=== PATIENT | male | born 1990 | race American Indian/Alaskan Native ===

== ENCOUNTER 2019-01-19 13:15 | Emergency (ER) | payer OTHER ==
--- NOTE | 2019-01-19 15:43 | Emergency Department Report ---
HPI - General Chief Complaint: Skin/Abscess/Foreign Body Time Seen by Provider: 01/19/19 15:16 - HPI HPI: This is a 28-year-old male who presents to ED complaining of a spider bite that happened to upper arm earlier today. Patient states the area was swollen and has gone down a bit but he still wanted to come to be evaluated. Patient is also stating that he is coughing up brownish sputum for the past 2-3 weeks. He denies any fever, chills, nausea vomiting. She states is his cigarette smoker and has been for a long time since he recently moved here couple months ago and thinks it may be the [facility] Past Medical Hx - Past Medical History Previous Medical History?: No - Surgical History Past Surgical History?: No - Social History Smoking Status: Never Smoker Substance Use Type: Alcohol - Medications Home Medications: Home Medications Medication Instructions Recorded Confirmed Last Taken Type cephALEXin [Keflex] 500 mg PO Q12HR #10 cap 01/19/19 Unknown Rx ED Review of Systems ROS: Stated complaint: RT ARM SPIDER BITE/PAIN Other details as noted in HPI Comment: All other systems reviewed and negative Physical Exam - Physical Exam Vital Signs: Vital Signs 01/19/19 14:24 Temperature 98.9 F Pulse Rate 71 Respiratory 16 Rate Blood Pressure 137/85 O2 Sat by Pulse 99 Oximetry Physical Exam: GENERAL: Alert and oriented x3, no apparent distress, Normal Gait, atraumatic. HEAD: Head is normocephalic and a-traumatic. EYES: Extra ocular muscles are intact. Pupils are equal, round, and reactive to light and accommodation. NECK: Supple. Non edematous, No carotid bruits. No lymphadenopathy or thyromegaly. No C-spine tenderness LUNGS: Symetrical with respiration, No wheezing, no rales or crackles, CTAB. HEART: S1, S2 present, regular rate and rhythm without murmur, no rubs, no gallops. Non tender to palpation SKIN: Warm and dry, No lesions, No ulceration or induration present. Small insect bite to right lateral elbow ED Course Vital Signs 01/19/19 14:24 Temperature 98.9 F Pulse Rate 71 Respiratory 16 Rate Blood Pressure 137/85 O2 Sat by Pulse 99 Oximetry ED Medical Decision Making - Medical Decision Making 28-year-old male presents with an insect bite/spider bite Discuss antibiotics with prophylaxis for infection. Discussed follow-up with primary care physician in 3-5 days.. Critical care attestation.: If time is entered above; I have spent that time in minutes in the direct care of this critically ill patient, excluding procedure time. ED Disposition Clinical Impression: Spider bite Disposition: DC-01 TO HOME OR SELFCARE Is pt being admited?: No Does the pt Need Aspirin: No Condition: Stable Instructions: Insect Bite or Sting (ED) Additional Instructions: Make sure to follow up with the primary care physician as discussed. Take all your medications as you've been prescribed. If you have any worsening symptoms or develop new symptoms please return to ED immediately. Prescriptions: cephALEXin [Keflex] 500 mg PO Q12HR #10 cap Referrals: [facility] [Outside] - 3-5 Days [facility] [Outside] - 3-5 Days Forms: Work/School Release Form(ED) Time of Disposition: 16:08
[2019-01-19 16:45] VITALS: BP 140/80
== END 2019-01-19 16:36 | disposition home or self-care (01) ==
LOC: ED 13:15
DX: R42 Dizziness and giddiness (principal); R11.0 Nausea; I10 Essential (primary) hypertension; Z79.899 Other long term (current) drug therapy; Z90.89 Acquired absence of other organs; Z90.79 Acquired absence of other genital organ(s)
CPT/HCPCS: 99282

== ENCOUNTER 2019-05-23 21:15 | Emergency (ER) | payer SELFPAY ==
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
--- NOTE | 2019-05-23 22:30 | XRay Report ---
LEFT ELBOW 3 VIEWS INDICATION / CLINICAL INFORMATION: Basketball injury with left elbow pain and swelling. COMPARISON: None available. FINDINGS: BONES / JOINT(S): The joint spaces are well-maintained. There is no evidence of fracture, subluxation or joint effusion. SOFT TISSUES: No significant abnormality. ADDITIONAL FINDINGS: None. IMPRESSION: No acute abnormality. Signer Name: Matthieu Castro MD Signed: 05/23/2019 10:26 PM Workstation Name: [id number]
--- NOTE | 2019-05-23 22:32 | XRay Report ---
LEFT HAND 4 VIEWS INDICATION / CLINICAL INFORMATION: Basketball injury with left hand pain and decreased range of motion. COMPARISON: None available. FINDINGS: BONES / JOINT(S): The joint spaces are well-maintained. There is no evidence of fracture or dislocati on. SOFT TISSUES: No significant abnormality. ADDITIONAL FINDINGS: None. IMPRESSION: No acute abnormality. Signer Name: Matthieu Castro MD Signed: 05/23/2019 10:27 PM Workstation Name: [id number]
--- NOTE | 2019-05-23 22:59 | Emergency Department Report ---
Upper Extremity - [facility] Chief Complaint: Extremity Injury, Upper Stated Complaint: FINGER NUMBNESS Time Seen by Provider: 05/23/19 21:37 Upper Extremity: Left Hand, Left Ring Finger, Left Little Finger Occurred When: 1 Day Mechanism: Fall Severity: severe Symptoms: Yes Pain with Movement, Yes Limited Range of Movement, Yes Numbness, Yes Swelling (left ebow), Yes Bruising/Ecchymosis (left elbow), Yes Laceration or Abrasion, No Deformity, No Weakness Other History: 28-year-old -Russian male presents to the emergency room complaining of left elbow pain and numbness to his last 3 fingers on the left hand. Patient reports that they feel numb any in the last 2 would not stay straightened out. Patient has taken nothing for pain but complains pain is 8 out of 10. Patient reports this happened yesterday night as he was playing basketball and fell and hit to the ground where his elbow hit the concrete. Patient denies any past medical history takes no medications on a daily basis has no known drug allergies. He admits to smoking and smoking we denies any other illicit drugs. He did not place any ice on his injury. ED Review of Systems ROS: Stated complaint: FINGER NUMBNESS Other details as noted in HPI ED Past Medical Hx - Past Medical History Previous Medical History?: No - Surgical History Past Surgical History?: No - Social History Smoking Status: Current Every Day Smoker Substance Use Type: Marijuana - Medications Home Medications: Home Medications Medication Instructions Recorded Confirmed Last Taken Type cephALEXin [Keflex] 500 mg PO Q12HR #10 cap 01/19/19 Unknown Rx Ibuprofen [Motrin 600 MG tab] 600 mg PO Q8H PRN #30 tablet 05/24/19 Unknown Rx Upper Extremity Exam - Exam General: Vital signs noted. No distress. Alert and acting appropriately. ED Course Vital Signs 05/23/19 05/23/19 21:20 21:36 Temperature 98.5 F 98.5 F Pulse Rate 70 71 Respiratory 18 18 Rate Blood Pressure 118/80 118/80 O2 Sat by Pulse 100 100 Oximetry ED Medical Decision Making - Radiology Data Radiology results: report reviewed Patient: CLAIRE CAPELLAN MR#: [id number] : 1990 Acct:[id number] Age/Sex: 28 / M ADM Date: 05/23/19 Loc: ED Attending Dr: Ordering Physician: BERT RICHARDS Date of Service: 05/23/19 Procedure(s): XR elbow 3+V LT Accession Number(s): [id number] cc: BERT RICHARDS Fluoro Time In Minutes: LEFT ELBOW 3 VIEWS INDICATION / CLINICAL INFORMATION: Basketball injury with left elbow pain and swelling. COMPARISON: None available. FINDINGS: BONES / JOINT(S): The joint spaces are well-maintained. There is no evidence of fracture, subluxation or joint effusion. SOFT TISSUES: No significant abnormality. ADDITIONAL FINDINGS: None. IMPRESSION: No acute abnormality. Signer Name: Matthieu Castro MD Signed: 05/23/2019 10:26 PM Workstation Name: [id number] Transcribed By: RT Dictated By: Matthieu Castro MD Electronically Authenticated By: Matthieu Castro MD Signed Date/Time: 05/23/192225 DD/ 24 TD/TT: - Medical Decision Making 28-year-old -Russian male presents to the emergency room complaining of left elbow pain and numbness to his last 3 fingers on the left hand. Patient reports that they feel numb any in the last 2 would not stay straightened out. Patient has taken nothing for pain but complains pain is 8 out of 10. Patient reports this happened yesterday night as he was playing basketball and fell and hit to the ground where his elbow hit the concrete. Patient denies any past medical history takes no medications on a daily basis has no known drug allergies. He admits to smoking and smoking we denies any other illicit drugs. He did not place any ice on his injury. X-ray of elbow and hand shows no acute abnormalities. Discussed case with Dr. Solis he feels that this is a ulnar nerve damage. We will place patient in a posterior splint with a volar to the hand. Ibuprofen for pain management and referral to Dr. Claire and/or resurgence. Critical care attestation.: If time is entered above; I have spent that time in minutes in the direct care of this critically ill patient, excluding procedure time. ED Disposition Clinical Impression: Elbow pain, left, Pain in left ulna, Elbow abrasion, non-infected Left elbow contusion Qualifiers: Encounter type: initial encounter Qualified Code(s): S50.02XA - Contusion of left elbow, initial encounter Fall Qualifiers: Encounter type: initial encounter Qualified Code(s): W19.XXXA - Unspecified fall, initial encounter Disposition: DC- TO HOME OR SELFCARE Is pt being admited?: No Does the pt Need Aspirin: No Condition: Stable Instructions: Elbow Sprain (ED) Prescriptions: Ibuprofen [Motrin 600 MG tab] 600 mg PO Q8H PRN #30 tablet PRN Reason: Pain Referrals: MATTHIEU CLAIRE MD [Staff Physician] - 3-5 Days [facility] [Provider Group] - 3-5 Days Forms: Work/School Release Form(ED)
[2019-05-23] MEDS ORDERED: IBUPROFEN 600 MG TAB PO ONE (23:00)
[2019-05-24 00:37] VITALS: BP 110/76
== END 2019-05-24 00:20 | disposition home or self-care (01) ==
LOC: ED 21:15
DX: S50.02XA Contusion of left elbow, initial encounter (principal); F17.200 Nicotine dependence, unspecified, uncomplicated; F12.10 Cannabis abuse, uncomplicated; W19.XXXA Unspecified fall, initial encounter; Y93.89 Activity, other specified; Y92.89 Other specified places as the place of occurrence of the external cause; Y99.8 Other external cause status

== ENCOUNTER 2019-12-21 16:20 | Emergency (ER) | payer SELFPAY ==
[2019-12-21] MEDS ORDERED: NALOXONE 2 MG/2 ML INJ ONE (16:25)
[2019-12-21] MEDS ORDERED: DEXTROSE 50% IN WATER (25GM) 50 ML SYRINGE IV ONE (16:27)
[2019-12-21] MEDS ORDERED: NALOXONE 0.4 MG/1 ML INJ IV ONE (16:44)
[2019-12-21 17:00] LABS: Hemoglobin 14.1 gm/dl (11.8-15.2); Mean Corpuscular HGB Conc 34 % (32-34); Mean Corpuscular Volume 95 fl (84-94); Platelet Count 215 K/mm3 (140-440); Red Blood Count 4.41 M/mm3 (3.65-5.03)
[2019-12-21 17:20] LABS: BUN/Creatinine Ratio 14; Blood Urea Nitrogen 13 mg/dL (9-20); Calcium 8.9 mg/dL (8.4-10.2); Hemolysis Index 9
[2019-12-21 17:56] LABS: RBC Morphology Normal; Total Cells Counted 100
[2019-12-21 18:13] VITALS: BP 134/85
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
[2019-12-21] MEDS ORDERED: ACETAMINOPHEN 325 MG TAB ONE (18:24)
[2019-12-21] MEDS ORDERED: ACETAMINOPHEN 325 MG TAB PO ONE (18:27)
== END 2019-12-21 18:30 | disposition home or self-care (01) ==
LOC: ED 16:20
DX: T40.601A Poisoning by unspecified narcotics, accidental (unintentional), initial encounter (principal); F17.200 Nicotine dependence, unspecified, uncomplicated; F12.90 Cannabis use, unspecified, uncomplicated; Z79.899 Other long term (current) drug therapy; Y92.89 Other specified places as the place of occurrence of the external cause
CPT/HCPCS: 36415; 80048; 82962; 85007; 85025; 96374; 99284; J2310; 80320; G0480

== ENCOUNTER 2020-08-13 02:54 | Emergency (ER) | payer MEDICAID ==
--- NOTE | 2020-08-13 05:23 | XRay Report ---
Left forearm-2 views INDICATION: laceration. COMPARISON: None. IMPRESSION: There is bandaging about the mid to distal one third of the forearm with underlying soft tissue irregularity likely consistent with history of laceration. No fracture or malalignment. No re tained radiopaque foreign body or significant subcutaneous gas. No significant DJD. Signer Name: Ronal Viera MD Signed: 08/13/2020 5:19 AM Workstation Name: [id number]
[2020-08-13] MEDS ORDERED: LIDOCAINE (1%) 10 MG/1 ML VIAL 20 ML MDV INFILTRATI ONE (09:40)
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
[2020-08-13 10:12] VITALS: BP 146/95
== END 2020-08-13 10:27 | disposition home or self-care (01) ==
LOC: ED 02:54
DX: S51.812A Laceration without foreign body of left forearm, initial encounter (principal); Z79.899 Other long term (current) drug therapy; W26.8XXA Contact with other sharp object(s), not elsewhere classified, initial encounter; Y93.89 Activity, other specified; Y92.89 Other specified places as the place of occurrence of the external cause; Y99.8 Other external cause status

== ENCOUNTER 2020-08-23 17:23 | Emergency (ER) | payer MEDICAID ==
[2020-08-23 18:19] VITALS: BP 133/91
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
== END 2020-08-23 18:20 | disposition home or self-care (01) ==
LOC: ED 17:23
DX: S51.812A Laceration without foreign body of left forearm, initial encounter (principal); Z48.02 Encounter for removal of sutures; X58.XXXA Exposure to other specified factors, initial encounter; Y93.89 Activity, other specified; Y92.89 Other specified places as the place of occurrence of the external cause; Y99.8 Other external cause status